=== PATIENT | female | born 1990 | race Caucasian/White ===

== ENCOUNTER 2018-03-06 15:39 | Emergency (ER) | payer OTHER ==
[2018-03-06 16:09] VITALS: BP 111/75
--- NOTE | 2018-03-06 16:35 | EDM.PDOC ---
ED HPI GENERAL MEDICAL PROBLEM - General Chief Complaint: Lower Extremity Injury/Pain Stated Complaint: LOWER LEG RED AND SWOLLEN 24 WKS PREG Time Seen by Provider: 03/06/18 16:04 Source of Information: Reports: Patient, Family ([id number]), RN Notes Reviewed History Limitations: Reports: No Limitations - History of Present Illness INITIAL COMMENTS - FREE TEXT/NARRATIVE: The patient reports a red and tender area to her medial proximal left calf. The tenderness has been there for more than 2 months, but the redness just developed today. The patient is approximate 24 weeks , Ab1. She states that she mentioned her leg discomfort to her Lap Hand Tool, Dr. Camarillo, but that no evaluation was ordered. The patient does not have a PCP, other than Dr. Camarillo. 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) : 5 Para: 3 - Past Surgical History HEENT Surgical History: Reports: Oral Surgery (wisdom teeth extraction) Female Surgical History: Reports: D&C (x 1) Social & Family History - Tobacco Use Smoking Status *Q: Never Smoker - Caffeine Use Caffeine Use: Reports: Coffee, Soda - Alcohol Use Alcohol Use History: Yes Alcohol Use Frequency: Socially (when not ) - Recreational Drug Use Recreational Drug Use: No - Living Situation & Occupation Living situation: Reports: , with Spouse, with Family (3 kids) 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 ED EXAM, GENERAL - Physical Exam Exam: See Below Exam Limited By: No Limitations General Appearance: Alert, WD/WN, No Apparent Distress Extremities: Other (There is a circular area of mild erythema, measuring approximately 2.5 to 3 cm diamater, on the medial aspect of the patient's proximal calf. It is somewhat firm/indurated to palpation, and tender. There is associated calor. There are dilated superficial/varicose veins running in the local area, right under the area of erythema. No edema of the let leg compared to the right. Neurovascular status of the left lower extremity is intact.) Course - Vital Signs Last Recorded V/S: Last Vital Signs Temp 36.2 C 03/06/18 16:06 Pulse 71 03/06/18 16:06 Resp 20 03/06/18 16:06 BP 111/75 03/06/18 16:06 Pulse Ox 97 03/06/18 16:06 - Re-Assessments/Exams Free Text/Narrative Re-Assessment/Exam: 03/06/18 16:24 Clinically, the patient appears to have a small area of superficial thrombophlebitis on the medial aspect of her left proximal leg. I explained to the patient that we could potentially confirm the diagnosis with a Doppler ultrasound, however, the area is so small, I could see that an ultrasound might miss it, and I am also concerned that ordering an ultrasound to evaluate for superficial thrombophlebitis may not be covered by the patient's insurance. I'm recommending that the patient apply warm compresses to the area, elevate her left lower extremity as much as possible when she is not ambulating, and continue to wear compression stockings as much as possible. If she really wants to have an ultrasound of the area, this can be done as an outpatient through Dr. Camarillo. Departure - Departure Time of Disposition: 16:27 Disposition: Home, Self-Care 01 Condition: Good Clinical Impression: Superficial thrombophlebitis of left leg - Discharge Information *PRESCRIPTION DRUG MONITORING PROGRAM REVIEWED*: Not Applicable *COPY OF PRESCRIPTION DRUG MONITORING REPORT IN PATIENT [place]: Not Applicable Instructions: Phlebitis, [id number] Referrals: Capo Camarillo MD [Primary Care Provider] - Forms: ED Department Discharge Additional Instructions: You were seen in the emergency room for a painful red area to your upper inner leg. Based on your history and physical examination, you are suffering from superficial thrombophlebitis = a small area of inflammation due to a blood clot in a varicose vein. As discussed, an ultrasound of your leg was not recommended, because superficial thrombophlebitis is not an emergency condition, and your presentation was not consistent with a DVT. We recommend that you apply a heating pad to the area as much as possible. Continue to wear compression stockings, and elevate your left leg as much as possible when you are not walking around. You can talk to your Lap Hand Tool, Dr. Camarillo, about the possibilty of getting an ultrasound of your leg to confirm superficial thrombophlebitis. If any other problems, please do not hesitate to return to the ER.
== END 2018-03-06 16:42 | disposition home or self-care (01) ==
LOC: JD.ED 15:39
DX: O22.22 Superficial thrombophlebitis in pregnancy, second trimester (principal); Z3A.24 24 weeks gestation of pregnancy; Z79.899 Other long term (current) drug therapy
CPT/HCPCS: 99283

== ENCOUNTER 2018-06-23 05:50 | Inpatient (IN) | payer OTHER ==
[2018-06-23] MEDS ORDERED: Ondansetron 4 MG/2 ML SDV IVPUSH PRN ×2 (07:58→09:18)
[2018-06-23] MEDS ORDERED: Sodium Chloride 0.9% 10 ML Syringe FLUSH PRN (07:58)
[2018-06-23] MEDS ORDERED: Nalbuphine 20 MG/ML 1 ML Syringe IVPUSH PRN (07:58)
[2018-06-23] MEDS ORDERED: Ampicillin 2 GM in Sodium Chloride 0.9% 100 ML IV ONE (08:00)
[2018-06-23] MEDS ORDERED: Oxytocin/Lactated Ringers 10 UNIT/1,000 ML BAG IV SCH ×2 (08:00)
[2018-06-23] MEDS ORDERED: Ampicillin 2 GM AdvVial IV ONE (08:09)
[2018-06-23] MEDS ORDERED: Lactated Ringers 1,000 ML ONE (08:10)
[2018-06-23] MEDS: Lactated Ringers 1,000 ML IV SCH ×2 (08:28→13:22)
--- NOTE | 2018-06-23 08:58 | PCM.LDHP ---
<Capo Camarillo - Last Filed: 06/23/18 17:54> L&D History of Present Illness - General Admit Problem/Dx: Patient Status Order with Admit Dx/Problem 06/23/18 07:58 Patient Status [ADT] Routine Admission Diagnosis/Problem Admission Diagnosis/Problem - Related Data Allergies/Adverse Reactions: Allergies Allergy/AdvReac Type Severity Reaction Status Date / Time No Known Allergies Allergy Verified 06/23/18 09:07 Home Medications: Home Meds Vit with Ca/FA/Iron [ Plus Iron] 1 each PO DAILY tablet [Rx] Ranitidine HCl [Zantac 75] 75 mg PO DAILY 03/06/18 [History] L&D Exam - Vital Signs Vital Signs: Last Vital Signs Temp 36.8 C 06/23/18 07:20 Pulse 84 06/23/18 07:20 Resp 16 06/23/18 10:53 BP 111/70 06/23/18 07:20 Pulse Ox 99 06/23/18 10:53 - Patient Data Lab Results Last 24 hrs: Laboratory Results - last 24 hr 06/23/18 Range/Units 07:30 WBC 7.52 (3.98-10.04) K/mm3 RBC 3.53 L (3.98-5.22) M/mm3 Hgb 10.1 L (11.2-15.7) gm/L Hct 31.1 L (34.1-44.9) % MCV 88.1 (79.4-94.8) fl MCH 28.6 (25.6-32.2) pg MCHC 32.5 (32.2-35.5) g/dl RDW Std Deviation 40.5 (36.4-46.3) fL Plt Count 211 (182-369) K/mm3 MPV 9.2 L (9.4-12.3) fl Result Diagrams: 06/23/18 07:30 Orders Last 24hrs: Active Orders 24 hr Category Date Time Status Patient Status [ADT] Routine ADT 06/23/18 07:58 Active Activity as Tolerated [RC] PFP Care 06/23/18 07:58 Active Antiembolic Devices [RC] .Routine Care 06/23/18 08:00 Active Communication Order [RC] ASDIRECTED Care 06/23/18 07:58 Active Communication Order [RC] ASDIRECTED Care 06/23/18 07:58 Active Communication Order [RC] ASDIRECTED Care 06/23/18 07:58 Active Communication Order [RC] ASDIRECTED Care 06/23/18 07:58 Active Notify Provider [RC] ASDIRECTED Care 06/23/18 07:58 Active Notify Provider [RC] ASDIRECTED Care 06/23/18 09:18 Active Notify Provider [RC] PFP Care 06/23/18 07:58 Active Notify Provider [RC] PRN Care 06/23/18 07:58 Active Peripheral IV Care [RC] Q2HR Care 06/23/18 07:59 Active Urinary Catheter Assessment [RC] ASDIRECTED Care 06/23/18 07:58 Active Vital Signs [RC] PER UNIT ROUTINE Care 06/23/18 07:58 Active Regular Diet [DIET] Diet 06/23/18 Breakfast Active RAPID PLASMA REAGIN,RPR [CHEM] Routine Lab 06/23/18 07:30 Received Ampicillin 1 gm Med 06/23/18 12:00 Active Sodium Chloride 0.9% [Normal Saline] 100 ml IV Q4H Calcium Carbonate [Tums] Med 06/23/18 12:32 Active 1,000 mg PO Q2HR PRN Lactated Ringers [Ringers, Lactated] 1,000 ml Med 06/23/18 08:00 Active IV ASDIRECTED Nalbuphine [Nubain] Med 06/23/18 07:58 Active 10 mg IVPUSH Q2H PRN Ondansetron [Zofran] Med 06/23/18 09:18 Active 4 mg IVPUSH ONETIME PRN Ondansetron [Zofran] Med 06/23/18 07:58 Active 4 mg IVPUSH Q4H PRN Oxytocin [Pitocin] 20 unit Med 06/23/18 15:15 Active Lactated Ringers [Ringers, Lactated] 1,000 ml IV TITRATE Oxytocin/Lactated Ringers [Pitocin in LR 10 Units/1,000 Med 06/23/18 08:00 Active ML] 10 unit in 1,000 ml IV .CONTINUOUS Oxytocin/Lactated Ringers [Pitocin in LR 10 Units/1,000 Med 06/23/18 08:00 Active ML] 10 unit in 1,000 ml IV TITRATE Sodium Chloride 0.9% [Saline Flush] Med 06/23/18 07:58 Active 10 ml FLUSH ASDIRECTED PRN diphenhydrAMINE [Benadryl] Med 06/23/18 09:18 Active 25 mg IVPUSH Q6H PRN ePHEDrine [ePHEDrine sulfate] Med 06/23/18 09:18 Active 5 mg IVPUSH ASDIRECTED PRN fentaNYL [Sublimaze] Med 06/23/18 09:18 Active 100 mcg EPIDUR ONETIME PRN fentaNYL/Bupivacaine/NS/PF [[id number] 2 MCG/ML- Med 06/23/18 12:58 Active 0.125%] 100 ml EPIDUR ASDIRECTED PRN DVT/VTE Prophylaxis Reflex [OM.PC] Routine Oth 06/23/18 08:00 Ordered Electronic Heart Tones Ext w TOCO [WOMSER] Oth 06/23/18 07:58 Ordered Routine Electronic Heart Tones Internal [WOMSER] Per Unit Oth 06/23/18 07:58 Ordered Routine Peripheral IV Insertion Adult [OM.PC] Routine Oth 06/23/18 07:58 Ordered Resuscitation Status Routine Resus Stat 06/23/18 07:58 Ordered Medication Orders Calcium Carbonate/Glycine (Tums) 1,000 mg PO Q2HR PRN PRN Reason: Indigestion Last Admin: 06/23/18 12:40 Dose: 1,000 mg Diphenhydramine HCl (Benadryl) 25 mg IVPUSH Q6H PRN PRN Reason: Pruritis Ephedrine Sulfate (Ephedrine Sulfate) 5 mg IVPUSH ASDIRECTED PRN PRN Reason: Hypotension Fentanyl (Sublimaze) 100 mcg EPIDUR ONETIME PRN PRN Reason: Pain Last Admin: 06/23/18 13:31 Dose: 100 mcg Fentanyl/Bupivacaine HCl (Vdxiotbl-Rrszf-Jz 2 Mcg/Ml-0.125%) 100 ml EPIDUR ASDIRECTED PRN PRN Reason: Abdominal Pain Last Admin: 06/23/18 13:31 Dose: 100 ml Ampicillin Sodium 1 gm/ Sodium (Chloride) 100 mls @ 200 mls/hr IV Q4H YANE Last Admin: 06/23/18 16:09 Dose: 200 mls/hr Infusion: 06/23/18 12:34 Dose: 200 mls/hr Admin: 06/23/18 12:04 Dose: 200 mls/hr Lactated Ringer's (Ringers, Lactated) 1,000 mls @ 100 mls/hr IV ASDIRECTED YANE Last Admin: 06/23/18 13:22 Dose: 999 mls/hr Infusion: 06/23/18 13:22 Dose: 100 mls/hr Admin: 06/23/18 08:28 Dose: 100 mls/hr Oxytocin/Lactated Ringer's (Pitocin In Lr 10 Units/1,000 Ml) 10 unit in 1,000 mls @ 12 mls/hr IV TITRATE YANE; Protocol Last Titration: 06/23/18 13:19 Dose: 20 munits/min, 120 mls/hr Titration: 06/23/18 13:07 Dose: 0 munits/min, 0 mls/hr Titration: 06/23/18 12:04 Dose: 20 munits/min, 120 mls/hr Titration: 06/23/18 11:36 Dose: 18 munits/min, 108 mls/hr Titration: 06/23/18 11:07 Dose: 16 munits/min, 96 mls/hr Titration: 06/23/18 10:18 Dose: 14 munits/min, 84 mls/hr Titration: 06/23/18 09:51 Dose: 12 munits/min, 72 mls/hr Titration: 06/23/18 09:35 Dose: 10 munits/min, 60 mls/hr Titration: 06/23/18 09:20 Dose: 8 munits/min, 48 mls/hr Titration: 06/23/18 09:05 Dose: 6 munits/min, 36 mls/hr Titration: 06/23/18 08:49 Dose: 4 munits/min, 24 mls/hr Admin: 06/23/18 08:28 Dose: 2 munits/min, 12 mls/hr Oxytocin/Lactated Ringer's (Pitocin In Lr 10 Units/1,000 Ml) 10 unit in 1,000 mls @ 500 mls/hr IV .CONTINUOUS YANE Oxytocin 20 unit/ Lactated (Ringer's) 1,002 mls @ 60.12 mls/hr IV TITRATE YANE; Protocol Nalbuphine HCl (Nubain) 10 mg IVPUSH Q2H PRN PRN Reason: pain Ondansetron HCl (Zofran) 4 mg IVPUSH Q4H PRN PRN Reason: Nausea/Vomiting Ondansetron HCl (Zofran) 4 mg IVPUSH ONETIME PRN PRN Reason: Nausea/Vomiting Sodium Chloride (Saline Flush) 10 ml FLUSH ASDIRECTED PRN PRN Reason: Keep Vein Open <Home Miller Megan - Last Filed: 06/23/18 20:29> L&D History of Present Illness - General Date of Service: 06/23/18 Admit Problem/Dx: Patient Status Order with Admit Dx/Problem 06/23/18 07:58 Patient Status [ADT] Routine Admission Diagnosis/Problem Admission Diagnosis/Problem 06/23/18 09:38 Kitty is a 27 year old white female 5 para 3013 at 39 weeks gestational age with an SANJEEV 06/30/2018 who is admitted to labor and delivery for induction of labor. The process, risks, benefits are discussed in detail. She appears to understand and wishes to proceed. Source of Information: Patient History Limitations: Reports: No Limitations - History of Present Illness Introduction:: Kitty is a year old 5 para 3013 white female at 39 weeks gestational age who is scheduled to be admitted to labor and delivery on 06/23/2018 for induction of labor. The details of induction of labor are discussed with the patient. She wishes to proceed and has signed consent. 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 Last menstrual period was reported to have onset 09/23/2017. Early ultrasound was performed on 12/15/2017 and supported by 1 other ultrasound performed on 02/15/2018 consistent with an SANJEEV of 06/30/2018. Her course has been relatively unremarkable. Her first visit occurred on 12/15/2017. She has been seen on regular basis. Fundal height growth was appropriate. Weight gain was from 127-149 pounds for a 22 pound weight gain. Previous obstetric history includes 3 vaginal deliveries. The first delivery was a male on 01/25/2010 at 40 weeks gestational age after 12 hours labor. This was a normal spontaneous vaginal delivery. Child's name is Bently. The second delivery was a female infant on 04/05/2011 at 40 weeks gestational age after 10 hours labor. This was a normal spontaneous vaginal delivery. Child' s name is Mariaelena. The third delivery was a male on 05/28/2014 at 40 weeks gestational age at 40 weeks gestational age after 5 hours labor. This was a spontaneous vaginal delivery. Child's name is Siva. Patient declined genetic testing. Her [place] depression screening score was 0 on a scale out of 30 on 01/20/2018. She plans to breastfeed. laboratory testing shows blood to be A negative with a negative antibody screen. Initial labs showed a hemoglobin of 14.1 g/dL and platelets of 247,000. She is rubella immune. RPR is nonreactive. Urine culture was negative. Hepatitis B surface antigen and HIV S are both negative. Chlamydia and gonorrhea assays were both negative. Second trimester laboratory testing showed a hemoglobin test that was 11.8 g/dL. Her platelets w\are normal at 243,000. One-hour GTT was abnormal at 147. Her 3-hour GTT was normal at 86, 169, 141, and 115. Her group B strep screen was positive. Patient is not allergic to penicillin and therefore will be treated with penicillin in the form of ampicillin prophylactically in labor and delivery. Allergies: No known drug allergies Medications: 1. Plus TABS - 1 daily Past medical history: 1. Normal spontaneous vaginal deliveries on 01/25/2010, 04/05/2011, and 2014. Past surgical history: 1. [place] teeth extraction 2. Dilation and curettage in 2009 Family history: Mother is alive and well. Father is alive and well. Two brothers who are alive and well. Maternal grandmother is alive and well. Maternal grandfather is - Alzheimer's, HD. Paternal grandmother is alive and well. Paternal grandfather is - unknown. There is no family history of cancer, bleeding or blood clotting problems, or -related issues. 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 She does not use any tobacco, alcohol, or drugs of abuse. She and her Loc live in [place], [place]. Review of systems: In general patient has no complaints. Baby has been active. No contractions noted. Skin: Negative Lungs: No infectious symptoms or shortness of breath Cardiovascular: No chest pain, palpitations, or exercise intolerance Breasts: No lumps, changes in size, pain, dimpling, discharge or axillary or supraclavicular concerns GI: negative : negative Musculoskeletal: negative Neurological: negative Physical exam: Initial weight was 127 pounds. Height is 5ft. On last evaluation in clinic her blood pressure was 104/70 with a weight of 149. heart rate is 144. In general, the patient is well-developed, well-nourished, pleasant female of stated age in no acute distress. Skin is warm, dry without lesions HEENT, neck, back are within normal limits Lungs are clear to auscultation in all lung grover Breast exam is deferred at this time having done at first visit and found to be normal. She does report changes associated with . Cardiovascular exam shows regular rate and rhythm, S1 S2, no murmurs or gallops Abdomen is gravid with fundal height at 36 cm on last evaluation in clinic. Genital exam shows cervix to be 2 cm, 50% effaced, soft, mid position, -3 station. Extremities and neurological exam grossly within normal limits. 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) H&P Review of Systems - Review of Systems: Review Of Systems: See Below General: Reports: No Symptoms HEENT: Reports: No Symptoms Pulmonary: Reports: No Symptoms Cardiovascular: Reports: No Symptoms Gastrointestinal: Reports: No Symptoms Genitourinary: Reports: No Symptoms Musculoskeletal: Reports: No Symptoms Skin: Reports: No Symptoms Psychiatric: Reports: No Symptoms Neurological: Reports: No Symptoms Hematologic/Lymphatic: Reports: No Symptoms Immunologic: Reports: No Symptoms L&D Exam - Exam Exam: See Below - Exam General: Alert, Oriented HEENT: Conjunctiva Clear, EACs Clear, EOMI, Hearing Intact, Mucosa Moist & [place] Neck: Supple, Trachea Midline Lungs: Clear to Auscultation, Normal Respiratory Effort Cardiovascular: Regular Rate, Regular Rhythm GI/Abdominal Exam: Normal Bowel Sounds, Soft, Non-Tender, No Organomegaly, No Distention, No Abnormal Bruit, No Mass, Pelvis Stable Rectal Exam: Normal Exam, Normal Rectal Tone Genitourinary: Normal external exam, Normal bimanual exam, Normal speculum exam Back Exam: Normal Inspection, Full Range of Motion Extremities: Normal Inspection, Normal Range of Motion, Non-Tender, No Pedal Edema Skin: Warm, Dry, Intact Neurological: Cranial Nerves Intact, Reflexes Equal Bilateral Psychiatric: Alert, Normal Affect, Normal Mood - Patient Data Lab Results Last 24 hrs: Laboratory Results - last 24 hr 06/23/18 Range/Units 07:30 WBC 7.52 (3.98-10.04) K/mm3 RBC 3.53 L (3.98-5.22) M/mm3 Hgb 10.1 L (11.2-15.7) gm/L Hct 31.1 L (34.1-44.9) % MCV 88.1 (79.4-94.8) fl MCH 28.6 (25.6-32.2) pg MCHC 32.5 (32.2-35.5) g/dl RDW Std Deviation 40.5 (36.4-46.3) fL Plt Count 211 (182-369) K/mm3 MPV 9.2 L (9.4-12.3) fl Result Diagrams: 06/23/18 07:30 Problem List Initiated/Reviewed/Updated: Yes Orders Last 24hrs: Active Orders 24 hr Category Date Time Status Patient Status [ADT] Routine ADT 06/23/18 07:58 Active Activity as Tolerated [RC] PFP Care 06/23/18 07:58 Active Antiembolic Devices [RC] .Routine Care 06/23/18 08:00 Active Communication Order [RC] ASDIRECTED Care 06/23/18 07:58 Active Communication Order [RC] ASDIRECTED Care 06/23/18 07:58 Active Communication Order [RC] ASDIRECTED Care 06/23/18 07:58 Active Communication Order [RC] ASDIRECTED Care 06/23/18 07:58 Active Heart Tones [RC] ASDIRECTED Care 06/23/18 07:59 Active Monitoring [RC] INTERMITTENT Care 06/23/18 07:58 Active Non Stress Test [RC] PER UNIT ROUTINE Care 06/23/18 07:58 Active Notify Provider [RC] ASDIRECTED Care 06/23/18 07:58 Active Notify Provider [RC] PFP Care 06/23/18 07:58 Active Notify Provider [RC] PRN Care 06/23/18 07:58 Active Peripheral IV Care [RC] . DIRECTED Care 06/23/18 07:59 Active Pump Management, Intrathecal [RC] ASDIRECTED Care 06/23/18 08:03 Active Urinary Catheter Assessment [RC] ASDIRECTED Care 06/23/18 07:58 Active VTE/DVT Education [RC] PER UNIT ROUTINE Care 06/23/18 08:00 Active Vaginal Exam [RC] ASDIRECTED Care 06/23/18 07:58 Active Vital Signs [RC] PER UNIT ROUTINE Care 06/23/18 07:58 Active Regular Diet [DIET] Diet 06/23/18 Breakfast Active RAPID PLASMA REAGIN,RPR [CHEM] Routine Lab 06/23/18 07:30 Received Ampicillin 1 gm Med 06/23/18 12:00 Active Sodium Chloride 0.9% [Normal Saline] 100 ml IV Q4H Lactated Ringers [Ringers, Lactated] 1,000 ml Med 06/23/18 08:00 Active IV ASDIRECTED Lidocaine 1% [Xylocaine 1%] Med 06/23/18 15:00 Once 20 ml INJECT ONETIME ONE Nalbuphine [Nubain] Med 06/23/18 07:58 Active 10 mg IVPUSH Q2H PRN Ondansetron [Zofran] Med 06/23/18 07:58 Active 4 mg IVPUSH Q4H PRN Oxytocin/Lactated Ringers [Pitocin in LR 10 Units/1,000 Med 06/23/18 08:00 Active ML] 10 unit in 1,000 ml IV .CONTINUOUS Oxytocin/Lactated Ringers [Pitocin in LR 10 Units/1,000 Med 06/23/18 08:00 Active ML] 10 unit in 1,000 ml IV TITRATE Sodium Chloride 0.9% [Saline Flush] Med 06/23/18 07:58 Active 10 ml FLUSH ASDIRECTED PRN DVT/VTE Prophylaxis Reflex [OM.PC] Routine Oth 06/23/18 08:00 Ordered Electronic Heart Tones Ext w TOCO [WOMSER] Oth 06/23/18 07:58 Ordered Routine Electronic Heart Tones Internal [WOMSER] Per Unit Oth 06/23/18 07:58 Ordered Routine Peripheral IV Insertion Adult [OM.PC] Routine Oth 06/23/18 07:58 Ordered Resuscitation Status Routine Resus Stat 06/23/18 07:58 Ordered Medication Orders Ampicillin Sodium 1 gm/ Sodium (Chloride) 100 mls @ 200 mls/hr IV Q4H YANE Lactated Ringer's (Ringers, Lactated) 1,000 mls @ 100 mls/hr IV ASDIRECTED YANE Last Admin: 06/23/18 08:28 Dose: 100 mls/hr Oxytocin/Lactated Ringer's (Pitocin In Lr 10 Units/1,000 Ml) 10 unit in 1,000 mls @ 12 mls/hr IV TITRATE YANE; Protocol Last Admin: 06/23/18 08:28 Dose: 2 munits/min, 12 mls/hr Oxytocin/Lactated Ringer's (Pitocin In Lr 10 Units/1,000 Ml) 10 unit in 1,000 mls @ 500 mls/hr IV .CONTINUOUS YANE Lidocaine HCl (Xylocaine 1%) 20 ml INJECT ONETIME ONE Stop: 06/23/18 15:01 Nalbuphine HCl (Nubain) 10 mg IVPUSH Q2H PRN PRN Reason: pain Ondansetron HCl (Zofran) 4 mg IVPUSH Q4H PRN PRN Reason: Nausea/Vomiting Sodium Chloride (Saline Flush) 10 ml FLUSH ASDIRECTED PRN PRN Reason: Keep Vein Open Assessment/Plan Comment:: Assessment: 1. 39 week intrauterine at time of admission to labor and delivery for induction of labor. 2. Generally healthy female with 3 previous vaginal deliveries 3. Patient plans to breast feed 4. Group B strep screen is positive. Patient is candidate for ampicillin prophylaxis. 5. Blood type is A- with negative antibody screen. Patient is candidate for Rhogam. 6. Rubella titer shows immunity. 7. Patient is up-to-date regarding Tdap done on 03/25/2018 and her flu shot on 12/14/2017. She is rubella immune. 8. Patient is okay with epidural for labor analgesia. Plan: 1. Initially evaluate patient in labor and delivery. Pitocin will be started for labor induction. Epidural analgesia for labor will be performed at patient' s request. Patient appears to understand this process and is interested in proceeding with this plan. 2. Group B strep prophylaxis with ampicillin. 3. Rhogam in labor and delivery. 4. Monitoring as above. 5. Support breast-feeding decision.
[2018-06-23] MEDS ORDERED: diphenhydrAMINE 50 MG/ML SDV IVPUSH PRN (09:18)
[2018-06-23] MEDS ORDERED: fentaNYL/Bupivacaine-NS 2 MCG/ML-0.125%/PF 100 ML Bag EPIDUR ONE (09:18)
[2018-06-23] MEDS ORDERED: fentaNYL 100 MCG/2 ML SDV EPIDUR PRN (09:18)
[2018-06-23] MEDS ORDERED: ePHEDrine 50 MG/ML SDV IVPUSH PRN (09:18)
--- NOTE | 2018-06-23 10:53 | PCM.PREANE ---
Preanesthetic Assessment - Anesthesia/Transfusion/Family Hx Anesthesia History: Prior Anesthesia Without Reaction Family History of Anesthesia Reaction: No Transfusion History: No Prior Transfusion(s) - Review of Systems General: No Symptoms Pulmonary: No Symptoms Cardiovascular: No Symptoms Gastrointestinal: Other (Heartburn with occasional need for zantac) Neurological: No Symptoms Other: Reports: None - Physical Assessment O2 Sat by Pulse Oximetry: 99 Respiratory Rate: 16 Vital Signs: Last Vital Signs Temp 36.8 C 06/23/18 07:20 Pulse 84 06/23/18 07:20 Resp 16 06/23/18 07:20 BP 111/70 06/23/18 07:20 Pulse Ox 99 06/23/18 07:20 Height: 1.52 m Weight: 69.4 kg ASA Class: 2 Mental Status: Alert & Oriented x3 Airway Class: Mallampati = 1 Dentition: Reports: Normal Dentition Thyro-Mental Finger Breadths: 3 Mouth Opening Finger Breadths: 3 ROM/Head Extension: Full Lungs: Clear to Auscultation, Normal Respiratory Effort Cardiovascular: Regular Rate, Regular Rhythm - Lab Values: Laboratory Last Values WBC 7.52 K/mm3 (3.98-10.04) 06/23/18 07:30 RBC 3.53 M/mm3 (3.98-5.22) L 06/23/18 07:30 Hgb 10.1 gm/L (11.2-15.7) L 06/23/18 07:30 Hct 31.1 % (34.1-44.9) L 06/23/18 07:30 MCV 88.1 fl (79.4-94.8) 06/23/18 07:30 MCH 28.6 pg (25.6-32.2) 06/23/18 07:30 MCHC 32.5 g/dl (32.2-35.5) 06/23/18 07:30 RDW Std Deviation 40.5 fL (36.4-46.3) 06/23/18 07:30 Plt Count 211 K/mm3 (182-369) 06/23/18 07:30 MPV 9.2 fl (9.4-12.3) L 06/23/18 07:30 - Allergies Allergies/Adverse Reactions: Allergies Allergy/AdvReac Type Severity Reaction Status Date / Time No Known Allergies Allergy Verified 06/23/18 09:07 - Acknowledgements Anesthesia Type Planned: Epidural Pt an Appropriate Candidate for the Planned Anesthesia: Yes Alternatives and Risks of Anesthesia Discussed w Pt/Guardian: Yes Pt/Guardian Understands and Agrees with Anesthesia Plan: Yes PreAnesthesia Questionnaire HEENT History: Reports: Other (See Below) Other HEENT History: wears glasses Gastrointestinal History: Reports: GERD (takes occasional antacids) 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: , 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 (x 1) - Past Surgical History HEENT Surgical History: Reports: Oral Surgery (wisdom teeth extraction) Female Surgical History: Reports: D&C (x 1) - SUBSTANCE USE Smoking Status *Q: Never Smoker Recreational Drug Use History: No - HOME MEDS Home Medications: Home Meds Vit with Ca/FA/Iron [ Plus Iron] 1 each PO DAILY tablet [Rx] Ranitidine HCl [Zantac 75] 75 mg PO DAILY 03/06/18 [History] - CURRENT (IN HOUSE) MEDS Current Meds: Current Medications Diphenhydramine HCl (Benadryl) 25 mg IVPUSH Q6H PRN PRN Reason: Pruritis Ephedrine Sulfate (Ephedrine Sulfate) 5 mg IVPUSH ASDIRECTED PRN PRN Reason: Hypotension Fentanyl (Sublimaze) 100 mcg EPIDUR ONETIME PRN PRN Reason: Pain Ampicillin Sodium 1 gm/ Sodium (Chloride) 100 mls @ 200 mls/hr IV Q4H YANE Lactated Ringer's (Ringers, Lactated) 1,000 mls @ 100 mls/hr IV ASDIRECTED YANE Last Admin: 06/23/18 08:28 Dose: 100 mls/hr Oxytocin/Lactated Ringer's (Pitocin In Lr 10 Units/1,000 Ml) 10 unit in 1,000 mls @ 12 mls/hr IV TITRATE YANE; Protocol Last Titration: 06/23/18 10:18 Dose: 14 munits/min, 84 mls/hr Oxytocin/Lactated Ringer's (Pitocin In Lr 10 Units/1,000 Ml) 10 unit in 1,000 mls @ 500 mls/hr IV .CONTINUOUS YANE Lidocaine HCl (Xylocaine 1%) 20 ml INJECT ONETIME ONE Stop: 06/23/18 15:01 Nalbuphine HCl (Nubain) 10 mg IVPUSH Q2H PRN PRN Reason: pain Ondansetron HCl (Zofran) 4 mg IVPUSH Q4H PRN PRN Reason: Nausea/Vomiting Ondansetron HCl (Zofran) 4 mg IVPUSH ONETIME PRN PRN Reason: Nausea/Vomiting Sodium Chloride (Saline Flush) 10 ml FLUSH ASDIRECTED PRN PRN Reason: Keep Vein Open Discontinued Medications Ampicillin Sodium (Ampicillin) Confirm Administered Dose 2 gm IV .STK-MED ONE Stop: 06/23/18 08:10 Last Admin: 06/23/18 09:54 Dose: Not Given Fentanyl/Bupivacaine HCl (Jkxumxvg-Nncqb-Dv 2 Mcg/Ml-0.125%) 100 ml EPIDUR ONETIME ONE Stop: 06/23/18 09:19 Ampicillin Sodium 2 gm/ Sodium (Chloride) 100 mls @ 200 mls/hr IV ONETIME ONE Stop: 06/23/18 08:29 Last Admin: 06/23/18 08:29 Dose: 200 mls/hr Lactated Ringer's (Ringers, Lactated) Confirm Administered Dose 1,000 mls @ as directed .ROUTE .STK-MED ONE Stop: 06/23/18 08:11 Last Admin: 06/23/18 09:54 Dose: Not Given
[2018-06-23] MEDS: Ampicillin 1 GM in Sodium Chloride 0.9% 100 ML IV SCH ×2 (12:04→16:09)
[2018-06-23] MEDS ORDERED: Calcium Carbonate 500 MG Tab.Chew PO PRN (12:32)
[2018-06-23] MEDS ORDERED: fentaNYL/Bupivacaine-NS 2 MCG/ML-0.125%/PF 100 ML Bag EPIDUR PRN (12:58)
[2018-06-23] MEDS ORDERED: Lidocaine 1% 50 ML MDV INJECT ONE (15:00)
--- NOTE | 2018-06-23 18:00 | PCM.SN ---
- Free Text/Narrative Note: Kitty is a 27-year-old white female admitted at 39-0/7 weeks on the a.m. of 06/23/2018 for elective induction of labor. SANJEEV is 06/30/2018. Speculum induction was undertaken using Pitocin and then eventually artificial rupture membranes. Patient progressed well to approximately 1730 hrs. at which time she became completely dilated. She pushed approximate 4 contractions and delivered a viable, cesar, female infant with Apgars of 8 and 9, weight 3050 g see 6 pounds 11.6 ounces), length of 20.5 inches in a right occiput anterior position. The baby was placed on mom's abdomen. Pitocin was started via the IV to facilitate an increase in uterine tone and decrease likelihood of bleeding. Cord was noted to have 3 vessels. It was allowed to pulsate 1 minute then was clamped 2 and cut by the baby's father. Cord bloods obtained. Placenta then delivered in a Vazquez presentation, appeared intact and complete and was discarded per patient desire. She had no perineal or vaginal lacerations. No suturing was performed. Assessment blood loss was 200 mL. Patient plans to breast-feed. Condition: Good
[2018-06-23] MEDS ORDERED: Witch Hazel Medicated Pads 40/Jar TOP PRN (18:26)
[2018-06-23] MEDS ORDERED: Docusate Sodium 100 MG Cap PO PRN (18:26)
[2018-06-23] MEDS ORDERED: Benzocaine/Menthol 20%-0.5% Spray 56 GM Canister TOP PRN (18:26)
[2018-06-23] MEDS ORDERED: Lanolin 100% Cream 7 GM Tube TOP PRN (18:26)
[2018-06-23] MEDS: Ibuprofen 600 MG Tab PO PRN (21:32)
[2018-06-23] MEDS ORDERED: Bupivacaine 0.25% 10 ML SDV ONE (22:00)
[2018-06-24] MEDS: Acetaminophen 325 MG Tab PO PRN ×2 (07:34→15:41)
--- NOTE | 2018-06-24 08:08 | PCM48HPAN ---
Post Anesthesia Note - EVALUATION WITHIN 48HRS OF ANESTHETIC Vital Signs in Normal Range: Yes Patient Participated in Evaluation: Yes Respiratory Function Stable: Yes Airway Patent: Yes Cardiovascular Function Stable: Yes Hydration Status Stable: Yes Pain Control Satisfactory: Yes Nausea and Vomiting Control Satisfactory: Yes Mental Status Recovered: Yes
[2018-06-24] MEDS: Ibuprofen 600 MG Tab PO PRN ×2 (12:32→20:04)
--- NOTE | 2018-06-25 06:05 | PCM.DCSUM1 ---
Discharge Summary - Hospital Course HPI Initial Comments: Kitty is a 27-year-old white female admitted at 39-0/7 weeks on the a.m. of 06/23/2018 for elective induction of labor. SANJEEV is 06/30/2018. Speculum induction was undertaken using Pitocin and then eventually artificial rupture membranes. Patient progressed well to approximately 1730 hrs. at which time she became completely dilated. She pushed approximate 4 contractions and delivered a viable, cesar, female infant with Apgars of 8 and 9, weight 3050 g see 6 pounds 11.6 ounces), length of 20.5 inches in a right occiput anterior position. The baby was placed on mom's abdomen. Pitocin was started via the IV to facilitate an increase in uterine tone and decrease likelihood of bleeding. Cord was noted to have 3 vessels. It was allowed to pulsate 1 minute then was clamped 2 and cut by the baby's father. Cord bloods obtained. Placenta then delivered in a Vazquez presentation, appeared intact and complete and was discarded per patient desire. She had no perineal or vaginal lacerations. No suturing was performed. Assessment blood loss was 200 mL. Patient plans to breast-feed. patient is doing well. She is nursing without problems, ambulating well. She has no concerns. She is voiding well and has minimal lochia. She is desiring discharge home today. Condition: Good Diagnosis: Stroke: No - Discharge Data Discharge Date: 06/25/18 Discharge Disposition: Home, Self-Care 01 Condition: Good - Patient Instructions Diet: Regular Diet as Tolerated (Nursing diet with increased calories and calcium as recommended) Driving: May Drive Today Showering/Bathing: May Shower (May take a bath) Notify Provider of: Fever, Increased Pain, Swelling and Redness, Nausea and/or Vomiting - Discharge Plan Home Medications: Home Meds Vit with Ca/FA/Iron [ Plus Iron] 1 each PO DAILY tablet [Rx] Acetaminophen [Tylenol] 650 mg PO Q4H PRN tablet 06/25/18 [Rx] Ibuprofen [Motrin] 600 mg PO Q4H PRN tablet 06/25/18 [Rx] Referrals: Capo Camarillo MD [Primary Care Provider] - ([facility] weeks.) - Discharge Summary/Plan Comment DC Time >30 min.: No Discharge Summary/Plan Comment: Discharge instructions: 1. Discharge home 2. Diet, activity and follow-up discussed with patient. Recommend nursing diet with increased calories and calcium. 3. Precautions given concern increased pain, bleeding, temperature, signs/ symptoms of DVT/PE. 4. Medications per home medication was printed, discussed with and given to the patient. 5. Return to clinic-Dr. Camarillo[facility] [place] in 2 weeks. Diagnosis: Term -delivered Condition: Good - Patient Data Vitals - Most Recent: Last Vital Signs Temp 36.7 C 06/25/18 02:37 Pulse 72 06/25/18 02:37 Resp 16 06/25/18 02:37 BP 101/64 06/25/18 02:37 Pulse Ox 98 06/25/18 02:37 Weight - Most Recent: 69.4 kg I&O - Last 24 hours: Intake & Output 06/24/18 06/24/18 06/25/18 14:59 22:59 06:59 Intake Total 120 60 Balance 120 60 Lab Results - Last 24 hrs: Laboratory Results - last 24 hr 06/23/18 Range/Units 07:30 RPR Non-reactive (NONREACTIVE) Med Orders - Current: Current Medications Acetaminophen (Tylenol) 650 mg PO Q4H PRN PRN Reason: mild pain or fever Last Admin: 06/24/18 15:41 Dose: 650 mg Benzocaine/Menthol (Dermoplast Pain Relief [place]) 0 gm TOP ASDIRECTED PRN PRN Reason: Perineal Comfort Measure Docusate Sodium (Colace) 100 mg PO BID PRN PRN Reason: Constipation Last Admin: 06/24/18 12:33 Dose: 100 mg Emollient Ointment (Lansinoh Hpa) 0 gm TOP ASDIRECTED PRN PRN Reason: Sore Nipples Ibuprofen (Motrin) 600 mg PO Q4H PRN PRN Reason: Mild pain or fever Last Admin: 06/24/18 20:04 Dose: 600 mg Witch Tory (Tucks) 1 pad TOP ASDIRECTED PRN PRN Reason: Pain Discontinued Medications Ampicillin Sodium (Ampicillin) Confirm Administered Dose 2 gm IV .STK-MED ONE Stop: 06/23/18 08:10 Last Admin: 06/23/18 09:54 Dose: Not Given Bupivacaine HCl (Sensorcaine-Mpf 0.25%) 10 ml .ROUTE .STK-MED ONE Stop: 06/23/18 22:01 Calcium Carbonate/Glycine (Tums) 1,000 mg PO Q2HR PRN PRN Reason: Indigestion Last Admin: 06/23/18 12:40 Dose: 1,000 mg Diphenhydramine HCl (Benadryl) 25 mg IVPUSH Q6H PRN PRN Reason: Pruritis Ephedrine Sulfate (Ephedrine Sulfate) 5 mg IVPUSH ASDIRECTED PRN PRN Reason: Hypotension Fentanyl (Sublimaze) 100 mcg EPIDUR ONETIME PRN PRN Reason: Pain Last Admin: 06/23/18 13:31 Dose: 100 mcg Fentanyl/Bupivacaine HCl (Hcwlrzzm-Rwhmt-Zh 2 Mcg/Ml-0.125%) 100 ml EPIDUR ONETIME ONE Stop: 06/23/18 09:19 Last Admin: 06/23/18 19:17 Dose: Not Given Fentanyl/Bupivacaine HCl (Zimmxaae-Rllvo-Pp 2 Mcg/Ml-0.125%) 100 ml EPIDUR ASDIRECTED PRN PRN Reason: Abdominal Pain Last Admin: 06/23/18 13:31 Dose: 100 ml Ampicillin Sodium 2 gm/ Sodium (Chloride) 100 mls @ 200 mls/hr IV ONETIME ONE Stop: 06/23/18 08:29 Last Admin: 06/23/18 08:29 Dose: 200 mls/hr Ampicillin Sodium 1 gm/ Sodium (Chloride) 100 mls @ 200 mls/hr IV Q4H YANE Last Admin: 06/23/18 16:09 Dose: 200 mls/hr Lactated Ringer's (Ringers, Lactated) 1,000 mls @ 100 mls/hr IV ASDIRECTED YANE Last Admin: 06/23/18 13:22 Dose: 999 mls/hr Oxytocin/Lactated Ringer's (Pitocin In Lr 10 Units/1,000 Ml) 10 unit in 1,000 mls @ 12 mls/hr IV TITRATE YANE; Protocol Last Titration: 06/23/18 17:39 Dose: 999 mls/hr Oxytocin/Lactated Ringer's (Pitocin In Lr 10 Units/1,000 Ml) 10 unit in 1,000 mls @ 500 mls/hr IV .CONTINUOUS YANE Lactated Ringer's (Ringers, Lactated) Confirm Administered Dose 1,000 mls @ as directed .ROUTE .STK-MED ONE Stop: 06/23/18 08:11 Last Admin: 06/23/18 09:54 Dose: Not Given Oxytocin 20 unit/ Lactated (Ringer's) 1,002 mls @ 60.12 mls/hr IV TITRATE YANE; Protocol Last Admin: 06/23/18 17:45 Dose: 20 munits/min, 60.12 mls/hr Lidocaine HCl (Xylocaine 1%) 20 ml INJECT ONETIME ONE Stop: 06/23/18 15:01 Last Admin: 06/23/18 19:17 Dose: Not Given Nalbuphine HCl (Nubain) 10 mg IVPUSH Q2H PRN PRN Reason: pain Ondansetron HCl (Zofran) 4 mg IVPUSH Q4H PRN PRN Reason: Nausea/Vomiting Ondansetron HCl (Zofran) 4 mg IVPUSH ONETIME PRN PRN Reason: Nausea/Vomiting Sodium Chloride (Saline Flush) 10 ml FLUSH ASDIRECTED PRN PRN Reason: Keep Vein Open
[2018-06-25 09:09] VITALS: BP 96/64
== END 2018-06-25 10:45 | disposition home or self-care (01) | DRG 807 ==
LOC: JD.OB 06:58 → OBSVTOIN 17:39 → JD.OB 17:39
PROVIDERS: ADMIT Obstetrics & Gynecology; ATTEND Obstetrics & Gynecology
PROC: 10E0XZZ Delivery of Products of Conception, External Approach (ICD-10-PCS; principal; 2018-06-23)
PROC: 10907ZC Drainage of Amniotic Fluid, Therapeutic from Products of Conception, Via Natural or Artificial Opening (ICD-10-PCS; 2018-06-23)
PROC: 3E033VJ Introduction of Other Hormone into Peripheral Vein, Percutaneous Approach (ICD-10-PCS; 2018-06-23)
PROC: 3E0R3BZ Introduction of Anesthetic Agent into Spinal Canal, Percutaneous Approach (ICD-10-PCS; 2018-06-23)
PROC: 00HU33Z Insertion of Infusion Device into Spinal Canal, Percutaneous Approach (ICD-10-PCS; 2018-06-23)
DX: O69.81X0 Labor and delivery complicated by cord around neck, without compression, not applicable or unspecified (principal); Z37.0 Single live birth; O99.824 Streptococcus B carrier state complicating childbirth; Z3A.39 39 weeks gestation of pregnancy
CPT/HCPCS: 01967; 36415; 51702; 59025; 59409; 85027; 86592; A9270-GY; J0290; J2590; J3010; J3490; J7030; J7120